=== PATIENT | female | born 1940 | race African-American/Black ===

== ENCOUNTER 2016-12-27 20:45 | Emergency (ER) | payer MEDICARE ==
[~2016-12-27 20:45] MED LIST: 8 HOUR650 MG PO; ALAWAY0.025 % OPH; APRES10B PO; ARANESP60 SC; ASAB PO; BACDS PO; BEN25 PO; CALTRA600D PO; CAT1 PO; CLARIT10 PO; COREG3 PO; COREG6 PO; COZ50 PO; CYANO1000T PO; DIOVAN HCT320 MG/25 PO; DORYX100 MG PO; DOX10 PO; DSS PO; FLONASE NAS; FOLIC ACID400 MC1 PO; HALF81 PO; HYDRALAZINE100 MG PO; IRON325 MG PO; IVVIBRA PO; K-TABS10 MEQ PO; KDUR20 PO; KLOR-CON M1010 MEQ PO; L40 PO; LEVOTHYROXIN50 MCG PO; LEVSINTAB PO; LEVSINTAB PO/SL; LEVSINTAB SL; MAALOX PO; METPAKSF PO; MOMUD PO; MULTIVIT/MIN PO; MULTIVITAMI1 PO; NORCO1 TA1 PO; NORV5 PO; OS500+D PO; P5 PO; PEP20 PO; PEPCID40 MG PO; PLAQ200B PO; PREPARATIO2 PR; PROTONIX PO; REFRESH PLUS0.5 % OPH; SB325 PO; SPIRO25 PO; SUCR PO; SYN.05 PO; TEARS NATURA OPH; THERA M PLUS PO; TOPXL100 PO; VITC500 PO
[2016-12-27 20:50] LABS: BASOPHILS 0.2 %; BASOPHILS ABSOLUTE 0.02 10/3/uL (0.0-0.16); EOSINOPHILS 0 %; ER CBC TAT 0 Hrs 03 Mins; HEMOGLOBIN 7.4 g/dL (12.0-16.0); IMMATURE GRANULOCYTES 0.2 %; IMMATURE GRANULOCYTES ABSOLUTE 0.02 10/3/uL (0.0-0.11); LYMPHOCYTES 12.4 %; LYMPHOCYTES ABSOLUTE 1.11 10/3/uL (0.67-4.30); MEAN CORPUSCULAR HEMOGLOB 26.3 pg (26.0-34.0); MEAN CORPUSCULAR VOLUME 81.9 fL (80-100); MEAN PLATELET VOLUME 10.2 fL (9.2-13.0); MONOCYTES 15.1 %; MONOCYTES ABSOLUTE 1.35 10/3/uL (0.21-1.20); NEUTROPHILS 72.1 %; NEUTROPHILS ABSOLUTE 6.43 10/3/uL (2.02-8.40); PLATELET COUNT 407 10/3/uL (150-400); RBC DISTRIBUTION WIDTH 19.2 % (12.0-16.0); RED CELL COUNT 2.81 10/6/uL (4.0-5.6); WHITE BLOOD CELLS 8.9 10/3/uL (4.5-10.5)
[2016-12-27 20:52] LABS: MANUAL DIFF NO %; MEAN CORPUS HGB CONC 32.2 g/dL (32.0-36.0)
[2016-12-27 20:58] LABS: INTERNATIONAL NORMAL RATI 1.5 UNITS (-); PARTIAL THROMBO TIME 38.3 SEC (22.5-37.2)
[2016-12-27 20:59] LABS: PROTIME (NOT ORD) 17.5 SEC (12.0-14.5)
[2016-12-27 21:08] LABS: BUN (BLOOD UREA NITROGEN) 11 MG/DL (6-23); CALCIUM, SERUM 10.8 MG/DL (8.5-10.4); CHEST PAIN PROFILE TAT 0 Hrs 21 Mins; CHLORIDE, SERUM 116 MMOL/L (96-112); CO2 (CARBON DIOXIDE) 20 MMOL/L (24-34); CREATININE 1.42 MG/DL (0.55-1.02); GFR AFRICAN AMERICAN 42 ML/MIN (>=60); GFR NON AFRICAN AMERICAN 36 ML/MIN (>=60); GLUCOSE, SERUM 71 MG/DL (60-99); SGPT(ALT) 60 U/L (5-65); SODIUM, SERUM 143 MMOL/L (135-148); TOTAL BILIRUBIN 0.4 MG/DL (0-1.2); TOTAL PROTEIN 6.5 G/DL (6.0-8.5); TROPONIN I <0.02 NG/ML (<0.05)
[2016-12-27 21:09] LABS: ALBUMIN 2.1 G/DL (3.5-5.0); ALKALINE PHOSPHATASE 103 U/L (45-117); DIRECT BILIRUBIN 0.1 MG/DL (0.0-0.4); INDIRECT BILIRUBIN(NOT ORDER) 0.3 MG/DL (0.1-0.9); POTASSIUM, SERUM 4.6 MMOL/L (3.5-5.3); SGOT(AST) 69 U/L (5-40)
[2016-12-27 22:53] LABS: ASCORBIC ACID (UR NOT ORDER) NEG (NEG); BILIRUBIN, URINE NEGATIVE (NEG); ER URINALYSIS TAT 0 Hrs 09 Mins; KETONE, URINE NEGATIVE (NEG); LEUKOCYTE ESTERASE(NOT OR NEG (NEG); NITRITE (URINE) NEG (NEG); WBC (NOT ORDERED) (RFLEX) 1 (0-5)
[2017-04-23] MEDS ORDERED: FERROUS SULFATE PO (13:53)
[2017-04-23] MEDS ORDERED: CYMBALTA60 PO (13:53)
[2017-04-23] MEDS ORDERED: HCTZ25B PO (13:54)
[2017-04-23] MEDS ORDERED: PERCOCET 7.5/321 TAB PO (13:55)
[2017-04-25] MEDS ORDERED: MIRALAX POWDER1 PKT PO (07:33)
== END 2016-12-28 00:05 | disposition home or self-care (01) ==
LOC: ER 20:45
PROVIDERS: Nurse Practitioner
DX: R53.1 Weakness (principal); R63.0 Anorexia; D63.1 Anemia in chronic kidney disease; N18.9 Chronic kidney disease, unspecified; M06.9 Rheumatoid arthritis, unspecified; Z85.3 Personal history of malignant neoplasm of breast; Z88.5 Allergy status to narcotic agent; Z88.1 Allergy status to other antibiotic agents
CPT/HCPCS: 71010; 80048; 80076; 81001; 83735; 83880; 84484; 85025; 85610; 85730; 99285